=== PATIENT | male | born 1960 | race Hispanic/Latino ===

== ENCOUNTER → 2024-03-23 | Outpatient (CLI) | payer OTHER ==
[2024-03-23 12:28] LABS: BASOPHILS # (AUTO) 0.06 K/uL (0.00-0.20); BASOPHILS % (AUTO) 0.7 % (0.0-5.0); EOSINOPHILS # (AUTO) 0.24 K/uL (0.00-0.70); EOSINOPHILS % (AUTO) 2.8 % (0.0-8.0); HEMATOCRIT 44.1 % (42-54); IMMATURE GRANULOCYTE ABSOLUTE 0.04 K/uL (0-1); LYMPHOCYTES # (AUTO) 2.6 K/uL (1.0-4.8); LYMPHOCYTES % (AUTO) 30.3 % (21.0-51.0); MEAN CORPUSCULAR HEMOGLOBIN 31.8 pg (27.0-33.0); MEAN CORPUSCULAR HGB CONC 34.7 g/dL (32.0-36.0); MEAN CORPUSCULAR VOLUME 91.7 fL (79-99); MONOCYTES # (AUTO) 0.8 K/uL (0.1-1.0); MONOCYTES % (AUTO) 8.7 % (3.0-13.0); NEUTROPHILS # (AUTO) 4.9 K/uL (1.8-7.7); PLATELET COUNT (AUTO) 196 K/uL (130-400); RED BLOOD CELL COUNT(AUTO) 4.81 MIL/uL (4.50-6.20); RED CELL DISTRIBUTION WIDTH 13.2 % (11.0-15.5); WHITE BLOOD COUNT (AUTO) 8.6 K/uL (4.8-10.8)
[2024-03-23 12:44] LABS: ALBUMIN 3.6 g/dL (3.5-5.0); BILIRUBIN,TOTAL 0.6 mg/dL (0.2-1.0); POTASSIUM 3.8 mmol/L (3.5-5.1); TOTAL PROTEIN, SERUM 7.2 g/dL (6.0-8.3)
== END | disposition home or self-care (01) ==
LOC: LAB 02-27 15:47
PROVIDERS: ATTEND Internal Medicine Cardiovascular Disease
DX: R07.89 Other chest pain (principal); E78.5 Hyperlipidemia, unspecified
CPT/HCPCS: 36415; 80053; 80061; 83036; 85025

== ENCOUNTER → 2024-03-27 | Outpatient (CLI) | payer OTHER | END | disposition home or self-care (01) | LOC: SHCH 11:00 | PROVIDERS: ATTEND Internal Medicine Cardiovascular Disease | DX: R07.9 Chest pain, unspecified (principal) | CPT/HCPCS: 93306 ==

== ENCOUNTER → 2024-03-28 | Outpatient (CLI) | payer OTHER ==
[~2024-03-28] MED LIST: IOHEXOL 350 MG/ML 100ML INFUS..BTL IV ONE
--- NOTE | 2024-03-28 10:44 | HMCIMG ---
CT CARDIAC ANGIO W/CONT. CCTA HISTORY: Chest pain COMPARISON: None TECHNIQUE: Multiple sequential axial images of the chest were obtained along with the CT angiogram of the chest study. Patient was given 100 cc of Omnipaque through intravenous route. FINDINGS: There is no evidence of pulmonary nodule or parenchymal disease. No pleural effusion or pericardial effusion is seen. There is no evidence of pneumothorax. There are normal size mediastinal and hilar lymph nodes. The heart is borderline enlarged. Degenerative changes of the thoracolumbar spine are present. IMPRESSION: 1. No evidence of pulmonary nodule or effusion is seen. Please see CT angiogram report of coronary arteries.
--- NOTE | 2024-04-01 11:11 | CARDIOLOGY ---
RAD REPORT: CORNARY CT ANGIO RADIOLOGY REPORT: CORONARY CT ANGIOGRAPHY DATE: Apr 01, 2024 QUALITY: Excellent CLINICAL HISTORY AND INDICATION: [ chest pain, poor R wave progession on ECG ] TECHNIQUE: After obtaining a preliminary stamping die maker bench image, contrast imaging performed on an [employer] [id number] scanner. A dedicated, limited window, coronary imaging protocol was used, with single breath-hold, retrospective ECG gating, and automated arrhythmia rejection. 100 cc of low osmolar contrast agent: Omnipaque 350 was delivered via a 18-gauge IV catheter in the right antecubital fossa, using a power injector and followed by 60 cc of normal saline bolus as a chaser. Collimated images were reformatted at 0.5 mm intervals, and sent to an offline independent workstation for interpretation, using 3D anatomic reconstructions: Curved multiplanar reconstructions, maximum intensity projections, and mult iplanar imaging. No metoprolol was administered prior to scanning due to low baseline heart rate. 0.8 mg SL nitroglycerin was given. CORONARY ARTERY DESCRIPTIONS: The coronary arteries arise in normal position. Left main coronary artery: Normal caliber, short vessel that bifurcates into the LAD and LCx. No stenosis. Left anterior descending coronary artery: Normal caliber vessel and gives rise to diagonal and septal branches. High risk plaque (HRP) with positive remodeling and spotty calcification noted in the proximal LAD with 60% stenosis. Left circumflex coronary artery: Normal caliber, dominant and gives rise to a large OM branch. No stenosis. Right coronary artery: Small, non-dominant vessel giving rise to the PL and PDA branches. No stenosis. CAD-RADs: 3, moderate stenosis. HRP, recommend aggressive LDL lowering therapy. If angina, may consider invasive FFR vs CCTA-guided FFR ([facility]) vs functional assessment. Thoracic Aorta: Normal diameter. Angeline Vela MD Cardiovascular Disease [facility] ANGELINE VELA MD Apr 01, 2024 11:11
== END | disposition home or self-care (01) ==
LOC: RAH 07:58 → EDUNIT# 08:30
PROVIDERS: ATTEND Internal Medicine Cardiovascular Disease
DX: I25.10 Atherosclerotic heart disease of native coronary artery without angina pectoris (principal); M47.815 Spondylosis without myelopathy or radiculopathy, thoracolumbar region; R07.9 Chest pain, unspecified
CPT/HCPCS: 75574; Q9967

== ENCOUNTER 2024-06-12 05:43 | Day surgery (SDC) | payer OTHER ==
[2024-06-08 10:29] LABS: BASOPHILS # (AUTO) 0.04 K/uL (0.00-0.20); BASOPHILS % (AUTO) 0.6 % (0.0-5.0); EOSINOPHILS # (AUTO) 0.07 K/uL (0.00-0.70); HEMATOCRIT 45.1 % (42-54); IMMATURE GRANULOCYTE ABSOLUTE 0.03 K/uL (0-1); LYMPHOCYTES # (AUTO) 2.1 K/uL (1.0-4.8); LYMPHOCYTES % (AUTO) 30.1 % (21.0-51.0); MEAN CORPUSCULAR HEMOGLOBIN 31.3 pg (27.0-33.0); MEAN CORPUSCULAR VOLUME 89.5 fL (79-99); MONOCYTES # (AUTO) 0.7 K/uL (0.1-1.0); MONOCYTES % (AUTO) 9.7 % (3.0-13.0); NEUTROPHILS # (AUTO) 4.1 K/uL (1.8-7.7); NEUTROPHILS % (AUTO) 58.2 % (40.0-77.0); PLATELET COUNT (AUTO) 178 K/uL (130-400); RED BLOOD CELL COUNT(AUTO) 5.04 MIL/uL (4.50-6.20); RED CELL DISTRIBUTION WIDTH 12.2 % (11.0-15.5)
[2024-06-08 10:40] LABS: INR 1.05 (0.85-1.15); PROTHROMBIN TIME 11.7 SEC (9.6-11.6)
[2024-06-08 10:42] LABS: PARTIAL THROMBOPLASTIN TIME 31.5 SEC (26.3-35.5)
[2024-06-08 10:43] LABS: POTASSIUM 4.1 mmol/L (3.5-5.1)
[2024-06-08 10:45] VITALS: BP 164/92; PULSE 66; RESP 18; TEMP 97.7
--- NOTE | 2024-06-08 10:58 | HMCIMG ---
CHEST 1VW REASON: PREOP COMPARISON: None. FINDINGS: Single view of the chest was obtained. Lungs are clear. Heart size is normal. There is no pulmonary vascular congestion. Mediastinum and bony thorax appear unremarkable. IMPRESSION: 1. Normal single view chest x-ray.
[2024-06-08 11:55] LABS: B-TYPE NATRIURETIC PEPTIDE 44 pg/mL (0-100)
--- NOTE | 2024-06-08 12:19 | EKG ---
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
[~2024-06-12] VITALS: Ht 170.2 cm; Wt 87.4 kg
[2024-06-12] VITALS (9 sets, daily range): BP systolic 103–153; BP diastolic 66–80; PULSE 55–71; RESP 12–18; TEMP 97.2–98.1
[~2024-06-12 05:43] MED LIST changes: +ASPI-1197 PO; -IOHEXOL 350 MG/ML 100ML INFUS..BTL IV ONE; +ROSU10TA72 PO
[2024-06-12] MEDS ORDERED: HEParin-NS 1,000 UNIT/500 ML 1,000 ML IV ONE (07:31)
[2024-06-12] MEDS ORDERED: FENTanyl CITRate PF 50 MCG/1 ML 2ML VIAL ONE (07:31)
[2024-06-12] MEDS ORDERED: HEParin 10,000 UNIT/10ML (1,000 UNIT/ML) VIAL ONE (07:31)
[2024-06-12] MEDS ORDERED: MIDAZOLAM HCL 1 MG/ML 2ML VIAL ONE (07:31)
[2024-06-12] MEDS ORDERED: LIDOCAINE HCL 400MG/20ML VIAL ONE (07:31)
[2024-06-12] MEDS ORDERED: IOHEXOL 350 MG/ML 100ML INFUS..BTL IV ONE (07:31)
[2024-06-12] MEDS ORDERED: NITROGLYCERIN 50MG VIAL ONE (07:32)
[2024-06-12] MEDS: 0.9%NACL 1000ML 1,000 ML IV SCH (07:37)
[2024-06-12] MEDS ORDERED: 0.9%NACL 1000ML 1,000 ML IV SCH (09:00)
[2024-06-12] MEDS ORDERED: DEXTROSE 50%-WATER 50 ML DISP.SYRIN IV PRN (09:00)
[2024-06-12] MEDS ORDERED: GLUCAGON 1MG KIT 1 MG ML IM PRN (09:00)
--- NOTE | 2024-06-12 09:21 | PRN ---
PROCEDURE NOTE Indications: 1. Atypical chest pain 2. Abnormal coronary CTA (60% stenosis in the proximal LAD) done on 04/01/2024 3. Normal left ventricle systolic function (LVEF 55-60% by echocardiogram done on 03/27/2024) Procedures: Femoral angiogram, coronary angiogram, IFR of the LAD Introduction: After informed written consent was obtained, the patient was brought to the Catheterization Lab in the usual fasting state. Following sterile prep and drape, a time out was performed, then moderate sedation was administered, 1mg of Versed and 50mcg of Fentanyl, then 1% Lidocaine was infiltrated into the right femoral groin. Using a Modified Seldinger technique, a 6Fr Sheath was inserted into the right common femoral artery. While under fluoroscopic guidance, diagnostic coronary catheters were advanced over a wire into the central circulation where they were aspirated, flushed and placed to pressure monitoring, once the wire was removed. Coronary Angio: The left and right coronary arteries were engaged with appropriate catheters and angiography was performed under continuous pressure monitoring. Cardiac Findings: Co-dominant system LM: Large caliber vessel with mild luminal irregularities. The vessel bifurcates into the LAD and LCX. LAD: Medium caliber vessel with 40% stenosis in the proximal LAD and diffuse 40% stenosis in the mid LAD. ZENON three blood flow. Diagonal 1: Small caliber vessel mild luminal irregularities. Diagonal 2: Medium caliber vessel with mild luminal irregularities LCx: Large caliber vessel with 20-30% stenosis in the mid LCX. The rest of the vessel has mild luminal irregularities. OM1: Small caliber vessel mild luminal irregularities OM2: Medium caliber vessel with mild luminal irregularities OM3: Medium caliber vessel with mild luminal irregularities LPLV: Medium caliber vessel with mild luminal irregularities RCA: Medium caliber vessel with 30-40% stenosis in the mid RCA. RPDA: Small caliber vessel mild luminal irregularities Medications given: Versed 2mg, Fentanyl 75mcg, heparin 75 units/kg x1 dose, nitroglycerin 200mcg x 1 dose Coronary Intervention: Catheter: JL4 Guidewire: IFR guidewire After reviewing the above-mentioned findings the decision was made to further evaluate the LAD. We patient was administered heparin 75 units/kg x1 dose. We then advanced an IFR wire through the JL4 diagnostic catheter into the distal LAD. We then performed IFR and the lesions in the LAD were deemed to be hemo dynamically insignificant 0.91. IFR was repeated a 2nd time and the lesions were again deemed to be hemodynamically insignificant 0.89. The IFR wire and JL4 catheter were then removed. The patient tolerated the procedure well and without issue. Complications: None Conscious Sedation Monitoring: Under my direct order and supervision, medication for moderate conscious sedation was administered by the nursing staff and the patients level of consciousness and physiological status was monitored by an independent trained nurse. Closure of Access Site: After the case completed the sheath was pulled and a 6Fr Angioseal was deployed in the right common femoral artery without complication. Conclusion: 1. Non-obstructive CAD 2. Serial lesions in the LAD, hemodynamically insignificant by IFR 0.91 3. Abnormal coronary CTA done on 04/01/2024 4. Normal left ventricle systolic function (LVEF 55 through 60% by echocardiogram done on 03/27/2024) Recommendation: 1. Continue goal-directed medical therapy 2. Groin precautions 3. 4 hours of bedrest. 4. Start NS at 100 mL/hour x3 hours. 5. Okay to DC after bedrest is complete in the right groin is soft, free of bruising, bleeding, and or hematoma formation. 6. No driving for the next 48 hours 7. No heavy lifting or strenuous exercise for the next two weeks. 8. Please have the patient follow up with Dr. Magana in 1-2 weeks. JUSTINA MAGANA MD Jun 12, 2024 09:21
== END 2024-06-12 13:05 | disposition home or self-care (01) ==
LOC: DAH 05:43
PROVIDERS: ATTEND Internal Medicine Cardiovascular Disease
DX: R94.39 Abnormal result of other cardiovascular function study (principal); R07.2 Precordial pain; I25.10 Atherosclerotic heart disease of native coronary artery without angina pectoris; E78.5 Hyperlipidemia, unspecified; Z79.82 Long term (current) use of aspirin; Z79.01 Long term (current) use of anticoagulants; Z82.49 Family history of ischemic heart disease and other diseases of the circulatory system
CPT/HCPCS: 80048; 83880; 85025; 85610; 85730; 36415 ×2; 71045; 93005; 93454; 93571; 85347; C1894 ×2; C1760; C1769; J3010; J3490 ×2; J7030; J1644 ×2; J2250; Q9967; A4215; A4222; A4221; A4663; A4216; A4606; Q9965 ×2; A4223 ×3; 96360; 96361; 99156; 99157

== ENCOUNTER → 2024-12-05 | Outpatient (CLI) | payer OTHER ==
--- NOTE | 2024-12-05 16:39 | HMCIMG ---
EXAM: XR Right Knee, 3 Views. CLINICAL HISTORY: Bilateral primary osteoarthritis. COMPARISON: None provided. FINDINGS: BONES: No acute fracture or focal osseous lesion. JOINTS: Mild narrowing of medial compartment knee joint space suggesting mild osteoarthritis. No dislocation. SOFT TISSUES: The soft tissues are unremarkable. IMPRESSION: 1. Mild narrowing of medial compartment knee joint space, consistent with mild osteoarthritis. /[place]
--- NOTE | 2024-12-05 16:39 | HMCIMG ---
EXAM: XR Left knee, 3 Views. CLINICAL HISTORY: Bilateral primary osteoarthritis. COMPARISON: None provided. FINDINGS: BONES: No acute fracture or focal osseous lesion. JOINTS: Mild narrowing of medial compartment knee joint space suggesting mild osteoarthritis. No dislocation. SOFT TISSUES: The soft tissues are unremarkable. IMPRESSION: 1. Mild narrowing of medial compartment knee joint space, consistent with mild osteoarthritis. /[place]
== END | disposition home or self-care (01) ==
LOC: RAH 15:28
PROVIDERS: ATTEND Family Medicine
DX: M17.0 Bilateral primary osteoarthritis of knee (principal)
CPT/HCPCS: 73562